=== PATIENT | male | born 2000 | race Hispanic/Latino ===

== ENCOUNTER 2025-01-04 16:51 | Emergency (ER) | payer SELFPAY ==
--- NOTE | ~2025-01-04 | XR_ITS ---
EXAMINATION: XR shoulder LT min 2V, XR shoulder RT min 2V DATE: 01/04/2025 18:24 INDICATION: Bilateral shoulder pain after lifting weights TECHNIQUE: 1. AP internally and externally rotated, AP oblique externally rotated and transscapular Y views of the right shoulder were obtained. 2. AP internally and externally rotated, AP oblique externally rotated and transscapular Y views of the left shoulder were obtained. COMPARISON: None FINDINGS: Right shoulder: Normal alignment. No fracture. Glenohumeral joint is normal. Acromioclavicular joint is normal. Soft tissues are unremarkable. Visualized portions of the lungs are clear. Left shoulder: Normal alignment. No fracture. Glenohumeral joint is normal. Acromioclavicular joint is normal. Soft tissues are unremarkable. Visualized portion of the lungs are clear. IMPRESSION: Negative bilateral shoulder radiographs. Reviewed, dictated and finalized at location A. IMPRESSION: Negative bilateral shoulder radiographs.
[2025-01-04 17:12] VITALS: BP 150/76; PULSE 114; RESP 18; TEMP 36.8; O2SAT 98
--- NOTE | 2025-01-04 18:38 | ED.GENADULT ---
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 Patient says he is frequently lifting very heavy objects at work, sometimes up over his head. When he lifts objects over his head he developed pain in his bilateral shoulders. Pain then goes away when he rests. He has not taken any Motrin Tylenol. He has not followed up with the primary care physician. No traumatic injuries or specific event that causes pain. Related Data Allergies Allergy/AdvReac Type Severity Reaction Status Date / Time No Known Allergies Allergy Verified 01/04/25 17:14 Exam Narrative: APPEARANCE: No apparent distress. Head: atraumatic. EYES: EOMI, NOSE: Atraumatic NECK: Trachea midline RESPIRATORY: No increased rate of breathing CARDIOVASCULAR: RRR, ABDOMINAL: Non-distended MUSCULOSKELETAl: Bilateral exam of the shoulders revealed no areas of pain or tenderness on active or passive range of motion. Strength is intact. Arms are neurovascularly intact. NEURO: Alert. Moving 4/4 extremities SKIN:: Warm, dry. Normal color PSYCHIATRIC: Normal affect Course Vital Signs Vital signs: Vital Signs Temperature 98.2 F 01/04/25 17:12 Pulse Rate 114 H 01/04/25 17:12 Respiratory Rate 18 01/04/25 17:12 Blood Pressure 150/76 H 01/04/25 17:12 Pulse Oximetry 98 01/04/25 17:12 Temperature 98.2 F 01/04/25 17:12 Pulse Rate 114 H 01/04/25 17:12 Respiratory Rate 18 01/04/25 17:12 Blood Pressure 150/76 H 01/04/25 17:12 Pulse Oximetry 98 01/04/25 17:12 Medical Decision Making [facility] Narrative Medical decision making narrative: -Course: 24 year old male presenting with shoulder pain in the setting of lifting heavy objects above his head at work. X-rays negative. His physical exam here is unremarkable with no focal weakness or essentially any exam findings. Pain is likely musculoskeletal in nature due to lifting heavy objects. He has been instructed to use Motrin Tylenol and to reduce the amount of lifting that he is doing. He will be referred to a primary care physician for further management. -DDX includes but is not limited to: Impingement syndrome, muscle strain, rotator cuff injury Vital Signs Vital Signs: Vital Signs Temperature 98.2 F 01/04/25 17:12 Pulse Rate 114 H 01/04/25 17:12 Respiratory Rate 18 01/04/25 17:12 Blood Pressure 150/76 H 01/04/25 17:12 Pulse Oximetry 98 01/04/25 17:12 Temperature 98.2 F 01/04/25 17:12 Pulse Rate 114 H 01/04/25 17:12 Respiratory Rate 18 01/04/25 17:12 Blood Pressure 150/76 H 01/04/25 17:12 Pulse Oximetry 98 01/04/25 17:12 Discharge Plan Discharge Clinical Impression: Acute shoulder pain Patient Disposition: Home Condition: Stable Instructions: Antibiotic Form, Shoulder Pain (ED) Additional Instructions: Please take Motrin Tylenol for pain. Follow-up with primary care physician listed below. Return if you develop severe pain or weakness to any extremity. Patient Language: B[place] Prescriptions: New ibuprofen 800 mg tablet 800 mg PO TID PRN (Reason: pain) 7 Days Qty: 21 0RF acetaminophen 500 mg tablet 1,000 mg PO TID PRN (Reason: enid) 7 Days Qty: 42 0RF Follow-up/Referrals: PHYSICIAN,[employer] HELPER [Primary Care Provider, Internal Medicine] Juliano Reeves MD [Physician, Family Practice] - 1 Week
[2025-01-04 19:10] VITALS: BP 145/72; PULSE 101; RESP 16; O2SAT 95
== END 2025-01-04 19:22 | disposition home or self-care (01) ==
PROVIDERS: Emergency Provider Emergency Medicine
DX: M25.512 Pain in left shoulder (principal); M25.511 Pain in right shoulder; X50.0XXA Overexertion from strenuous movement or load, initial encounter
CPT/HCPCS: 73030; 99284